=== PATIENT | male | born 2000 | race Caucasian/White ===

== ENCOUNTER 2020-03-06 13:13 | Outpatient (REF) | payer OTHER, SELFPAY | END 2020-03-06 13:14 | disposition home or self-care (01) | LOC: HO.LAB 13:13 | PROVIDERS: Visit Provider Internal Medicine | DX: Z20.828 Contact with and (suspected) exposure to other viral communicable diseases (principal) | CPT/HCPCS: 87635 ==

== ENCOUNTER 2020-12-01 15:34 | Outpatient (REF) | payer MEDICAID, SELFPAY | END 2020-12-01 15:35 | disposition home or self-care (01) | LOC: HO.LAB 15:34 | PROVIDERS: PCP Nurse Practitioner Family; Visit Provider Internal Medicine | DX: Z20.822 Contact with and (suspected) exposure to COVID-19 (principal) | CPT/HCPCS: C9803; U0003; U0005 ==

== ENCOUNTER 2024-11-26 10:27 | Outpatient (REF) | payer OTHER, MEDICAID, SELFPAY ==
--- NOTE | 2024-11-26 10:35 | EMG_ITS ---
Please see the attached note MTDD
--- OUTSIDE RECORDS SUMMARY | 2024-11-26 11:39 | XMS_ITS | Encounter Summary ---
Author Organization [facility] Address [address] [place] [address] Phone Care Team Providers Care School Janitor Name Role Phone Marta Costello DO Primary Care Provider [phone] Encounter Details Date Type Department Care Team (Late st Contact Info) Description 08/12/2013 Documentation [facility] Family Medicine [address] [place] [address] Family Medicine, Physician [address] [id number] Social History Tobacco Use Types Packs/Day Years Used Date Smoking Tobacco: Never Assessed Sex and Gender Information Value Date Recorded Sex Assigned at Not on file Legal Sex Male 5:04 PM EDT Gender Identity Not on file Sexual Orientation Not on file documented as of this encounter Plan of Treatment Not on file documented as of this encounter Visit Diagnoses Not on filedocumented in this encounter Care Teams School Janitor Relationship Specialty Start Date End Date Marta Costello DO [address] [place] [address] PCP - General 12/23/16 08/24/22 documented as of this encounter
== END 2024-11-26 10:28 | disposition home or self-care (01) ==
LOC: HO.NEURO 10:27
PROVIDERS: Visit Provider Nurse Practitioner Family
DX: G56.22 Lesion of ulnar nerve, left upper limb (principal); R20.2 Paresthesia of skin; Z87.898 Personal history of other specified conditions
CPT/HCPCS: 95886; 95910

== ENCOUNTER → 2024-11-26 10:35 | Outpatient (BNV) | payer OTHER, SELFPAY | PROVIDERS: Visit Provider Psychiatry & Neurology Neurology | DX: G56.22 Lesion of ulnar nerve, left upper limb (principal) | CPT/HCPCS: 95886; 95910 ==